=== PATIENT | female | born 1960 | race Caucasian/White ===

== ENCOUNTER 2021-11-05 01:38 | Inpatient (IN) | payer BC, SELFPAY ==
[~2021-11-05] VITALS: Ht 162.6 cm; Wt 72.6 kg
[2021-11-05 01:50] VITALS: BP_SYST 145
--- NOTE | 2021-11-05 01:55 | NUR ---
Patient triaged and placed in waiting room. VSS and patient appears in no acute distress at this time. Accompanied by family, awaiting available bed, and MD notified of need for MSE.
--- NOTE | 2021-11-05 06:46 | NUR ---
Patient ambulatory to bed 1 for evaluation
[2021-11-05] MEDS ORDERED: ONDANSETRON 4 MG ODT TAB PO ONE (07:00)
[2021-11-05] MEDS ORDERED: ACETAMINOPHEN 500 MG TABLET PO ONE (07:00)
--- NOTE | 2021-11-05 07:00 | NUR ---
RESUMED CARE FROM NIGHT RN. PT IS STABLE, NAD, VSS, SOME MILD PAIN PER PT. MEDICATION ORDERED BY ED MD. PLAN OF CARE WITH DISPOSITION TO FOLLOW.
[2021-11-05] MEDS ORDERED: ONDA4TAB5 PO (07:08)
[2021-11-05] MEDS ORDERED: ACET325T53 PO (07:08)
[2021-11-05 08:51] LABS: BASOPHILS % (AUTO) 1.8 % (0.0-2.0); EOSINOPHILS % (AUTO) 0.1 % (0.0-4.0); HEMATOCRIT 39.6 % (36-48); HEMOGLOBIN 14.2 g/dL (12.0-16.0); LYMPHOCYTES # (AUTO) 0.6 K/uL (1.0-5.5); LYMPHOCYTES % (AUTO) 34.9 % (20.5-51.5); MEAN CORPUSCULAR HEMOGLOBIN 29 pg (27-31); MEAN CORPUSCULAR HGB CONC 36 % (32-36); MEAN CORPUSCULAR VOLUME 80 fL (79.0-98.0); MONOCYTES # (AUTO) 0.3 K/uL (0.0-1.0); MONOCYTES % (AUTO) 14.8 % (1.7-9.3); NEUTROPHILS % (AUTO) 48.4 % (40.0-70.0); PLATELET COUNT (AUTO) 280 K/uL (130-430); RED BLOOD CELL COUNT(AUTO) 4.94 MIL/uL (4.2-6.2); RED CELL DISTRIBUTION WIDTH 13.4 % (9.0-15.0)
[2021-11-05 09:01] LABS: NEUTROPHILS # (AUTO) 0.9 K/uL (1.8-7.7); WHITE BLOOD COUNT (AUTO) 1.8 K/uL (4.8-10.8)
[2021-11-05 09:09] LABS: CALCIUM 8.9 mg/dL (8.4-11.0); CREATININE 0.6 mg/dL (0.55-1.30)
[2021-11-05 09:14] LABS: ALBUMIN 4.2 g/dL (3.4-4.8); TOTAL BILIRUBIN 0.5 mg/dL (0.0-1.0)
[2021-11-05 09:22] LABS: POTASSIUM 2.6 mmol/L (3.5-5.1)
[2021-11-05] MEDS ORDERED: NACL 0.9% 1,000 ML IV ONE (09:30)
[2021-11-05 10:22] LABS: CALCIUM 8.8 mg/dL (8.4-11.0); CREATININE 0.57 mg/dL (0.55-1.30)
[2021-11-05 10:47] LABS: POTASSIUM 2.5 mmol/L (3.5-5.1)
[2021-11-05] MEDS ORDERED: POTASSIUM CHLORIDE 20 MEQ TAB.PRT.SR PO ONE (11:00)
[2021-11-05 11:21] LABS: PHOSPHORUS 3.3 mg/dL (2.7-4.5)
[2021-11-05 11:54] LABS: BILIRUBIN,URINE NEGATIVE (NEGATIVE); BLOOD, URINE 1+ (NEGATIVE); CLARITY/URINE CLEAR (CLEAR); COLOR,URINE YELLOW (YELLOW); GLUCOSE,URINE NEGATIVE (NEGATIVE); KETONES,URINE TRACE (NEGATIVE); LEUKOCYTE ESTERASE ,URINE NEGATIVE (NEGATIVE); NITRITE, URINE NEGATIVE (NEGATIVE); PROTEIN URINE 2+ (NEGATIVE); UROBILINOGEN,URINE 0.2 (0.2-1.0)
[2021-11-05 11:57] LABS: BACTERIA,URINE RARE /HPF (None Seen); WBC,URINE 0-3 /HPF (0-3)
[2021-11-05 11:58] LABS: HYALINE CASTS, URINE 0-10 /LPF (None Seen)
[2021-11-05] MEDS ORDERED: LOSA50TA3 PO (13:42)
--- NOTE | 2021-11-05 15:54 | NUR ---
CONSULTS: CONSULTS WERE PAGED DR HA: SPOKE WITH [employer] FAXED OVER FACESHEET [phone] PHONE EXCHANGE KEPT RINGING, WAS NOT ABLE TO MAKE DR MEZA AWARE OF CONSULT
[2021-11-05] MEDS: NACL 0.9% 1,000 ML IV SCH ×2 (16:00→21:40)
--- NOTE | 2021-11-05 19:21 | NUR ---
REPORT RECEIVED FROM [facility]
--- NOTE | 2021-11-05 19:35 | NUR ---
PT SITTING AT BEDSIDE IN A CHAIR, REMAINS ON BEDSIDE MONITOR, C/O HEADACHE AND SORE THROAT 06/08, CALLED BUNNY BLANCHARD AND RECEIVED NEW ORDERS FOR PAIN CONTROL.
[2021-11-05] MEDS: traMADol HCL HCL 50 MG TABLET (ULTRAM) PO PRN (19:54)
--- NOTE | 2021-11-05 22:49 | NUR ---
PT RESTING, REMAINS ON BEDSIDE MONITOR. PAIN IS MUCH BETTER /10. RESPIRATIONS REGULAR EVEN AND UNLABORED.
--- NOTE | 2021-11-06 02:41 | NUR ---
PT SLEEPING, REMAINS ON BEDSIDE MOINTOR, RESPIRATION REGULAR EVEN AND UNLABORED
--- NOTE | 2021-11-06 03:03 | NUR ---
Salty mcfadden in ED - 11/06/21 at 0553 by [id number] PT CONTINUES TO MOVE AROUND IN BED, PULLING OUT HER IV TO R FOREARM. STILL HAS IVTO LAC. MEDICIATEDWITH VERSEDBOLUS, NO EFFECT ON PT. ER AWARE
[2021-11-06] MEDS: NACL 0.9% 1,000 ML IV SCH ×3 (04:20→19:18)
[2021-11-06] MEDS ORDERED: traMADol HCL HCL 50 MG TABLET (ULTRAM) ONE (05:50)
[2021-11-06] MEDS: traMADol HCL HCL 50 MG TABLET (ULTRAM) PO PRN (05:52)
--- NOTE | 2021-11-06 05:53 | NUR ---
PT C/O SEVERE HEADACHE AND BODYACHES, MEDICATED WITH TRAMADOL PER ADMIT ORDERS.
--- NOTE | 2021-11-06 06:51 | NUR ---
PT RESTING, NO DISTRESS NOTED.
--- NOTE | 2021-11-06 07:16 | NUR ---
Salty mcfadden in [facility] - 11/06/21 at 0717 by MIKE report given to naomi orta
[2021-11-06 08:11] LABS: ALBUMIN 3.1 g/dL (3.4-4.8); CALCIUM 7.9 mg/dL (8.4-11.0); CREATININE 0.56 mg/dL (0.55-1.30); POTASSIUM 3.2 mmol/L (3.5-5.1); THYROID STIMULATING HORMONE 1.45 uIu/mL (0.36-3.74); TOTAL BILIRUBIN 0.1 mg/dL (0.0-1.0)
[2021-11-06 08:12] LABS: HEMATOCRIT 35.4 % (36-48); HEMOGLOBIN 12.2 g/dL (12.0-16.0); MEAN CORPUSCULAR HEMOGLOBIN 28 pg (27-31); MEAN CORPUSCULAR HGB CONC 34 % (32-36); MEAN CORPUSCULAR VOLUME 83 fL (79.0-98.0); PLATELET COUNT (AUTO) 230 K/uL (130-430); RED BLOOD CELL COUNT(AUTO) 4.29 MIL/uL (4.2-6.2); RED CELL DISTRIBUTION WIDTH 14.1 % (9.0-15.0)
--- NOTE | 2021-11-06 08:47 | NUR ---
Called Dr. Lyons in regards to pt's new lab values (Soudim 120 and Potassium 3.2). Gave telephone order of 1L nS bolus and 40meQ K-Letitia to be given.
[2021-11-06] MEDS ORDERED: POTASSIUM CHLORIDE 20 MEQ TAB.PRT.SR PO ONE (09:00)
[2021-11-06] MEDS ORDERED: NACL 0.9% 1,000 ML IV ONE (09:00)
--- NOTE | 2021-11-06 09:10 | NUR ---
Pt currently eating breakfast. Called pharmacy to verify pt's potassium medication.
--- NOTE | 2021-11-06 09:27 | NUR ---
Paged Dr. Armstrong in regards of order consult due to pt having Sodium value at 120.
[2021-11-06] MEDS: AZITHROMYCIN 500 MG in NS 250 ML IV SCH (09:53)
--- NOTE | 2021-11-06 11:00 | NUR ---
Dr. Armstrong returned call and stated to continue the 0.9 NS fluid pt is on. No new orders at this time.
[2021-11-06 11:28] LABS: BASOPHILS % (MANUAL) 0 % (0-2); EOSINOPHILS % (MANUAL) 0 % (0-7); LYMPHOCYTES % (MANUAL) 52 % (20-46); MONOCYTES % (MANUAL) 17 % (0-11)
--- NOTE | 2021-11-06 14:09 | NUR ---
Pt resting with no s/s of distress. VSS. Skin intact. 0.9 NS fluids running. IV is intact.
[2021-11-06 16:06] LABS: AMYLASE 91 U/L (0-100); LIPASE 256 U/L (73-393)
--- NOTE | 2021-11-06 16:29 | NUR ---
Pt tried to have a BM but stated she was not able to go. That she has been constipated for 4 days. ER physician notified.
[2021-11-06] MEDS ORDERED: MILK OF MAGNESIA 30 ML UDC PO ONE (17:00)
--- NOTE | 2021-11-06 19:46 | NUR ---
assumed care of pt from naomi orta
[2021-11-06] MEDS ORDERED: LEVOFLOXACIN IN DEXTROSE 5 % 100 ML IV ONE (21:02)
[2021-11-06] MEDS: LEVOFLOXACIN IN DEXTROSE 5 % 100 ML IV SCH (21:05)
--- NOTE | 2021-11-06 22:15 | NUR ---
PT GIVEN A FOOD TRAY. VSS. A&OX4
[2021-11-07] MEDS: NACL 0.9% 1,000 ML IV SCH ×4 (00:45→23:30)
--- NOTE | 2021-11-07 00:45 | NUR ---
# 22 gauge angiocath placed to L FOREARM. Use of asceptic technique. Opsite placed over site. Blood return noted. Flushed with 10 cc of normal saline. No evidence of infiltration noted. Patient tolerated well.
--- NOTE | 2021-11-07 02:52 | NUR ---
PT SLEEPING IN BED. VSS
[2021-11-07 05:48] LABS: HEMATOCRIT 35.5 % (36-48); HEMOGLOBIN 12.2 g/dL (12.0-16.0); LYMPHOCYTES # (AUTO) 0.7 K/uL (1.0-5.5); MONOCYTES # (AUTO) 0.2 K/uL (0.0-1.0)
[2021-11-07 05:52] LABS: ALBUMIN 2.9 g/dL (3.4-4.8); CALCIUM 7.7 mg/dL (8.4-11.0); POTASSIUM 3.6 mmol/L (3.5-5.1); TOTAL BILIRUBIN 0.2 mg/dL (0.0-1.0); URIC ACID 2.7 mg/dL (2.4-7.0)
[2021-11-07 06:14] LABS: CREATININE 0.57 mg/dL (0.55-1.30)
[2021-11-07 07:17] LABS: BASOPHILS % (AUTO) 0.6 % (0.0-2.0); EOSINOPHILS % (AUTO) 0.2 % (0.0-4.0); LYMPHOCYTES % (AUTO) 46.7 % (20.5-51.5); MEAN CORPUSCULAR HEMOGLOBIN 29 pg (27-31); MEAN CORPUSCULAR HGB CONC 34 % (32-36); MEAN CORPUSCULAR VOLUME 84 fL (79.0-98.0); MONOCYTES % (AUTO) 15.3 % (1.7-9.3); NEUTROPHILS % (AUTO) 37.2 % (40.0-70.0); PLATELET COUNT (AUTO) 210 K/uL (130-430); RED BLOOD CELL COUNT(AUTO) 4.24 MIL/uL (4.2-6.2); RED CELL DISTRIBUTION WIDTH 14.1 % (9.0-15.0)
--- NOTE | 2021-11-07 07:18 | NUR ---
REPORT GIVEN TO HONEY RAYA
[2021-11-07 07:24] LABS: NEUTROPHILS # (AUTO) 0.6 K/uL (1.8-7.7)
[2021-11-07 07:26] LABS: WHITE BLOOD COUNT (AUTO) 1.5 K/uL (4.8-10.8)
--- NOTE | 2021-11-07 07:45 | NUR ---
Recieved report from Michael RAYA.
--- NOTE | 2021-11-07 09:00 | NUR ---
Urine collected and sent to lab.
[2021-11-07] MEDS: AZITHROMYCIN 500 MG in NS 250 ML IV SCH (09:34)
[2021-11-07 10:30] VITALS: BP_SYST 149
--- NOTE | 2021-11-07 19:05 | NUR ---
Awaiting rm availability for Tele admit.NAD. NS 0.9 %IVF infusing well.
--- NOTE | 2021-11-07 19:05 | NUR ---
Report recieved fro am shift DOROTA Scales and care assumed.
[2021-11-07] MEDS: LEVOFLOXACIN IN DEXTROSE 5 % 100 ML IV SCH (22:25)
--- NOTE | 2021-11-07 22:35 | NUR ---
REport given to Tereza Boyer via phone.Wheeled by RN and EMT to [id number] with belongings.
[2021-11-07 22:45] VITALS: BP_SYST 145
[2021-11-07] MEDS ORDERED: DIPHENHYDRAMINE INJ 50 MG/ML VIAL IVP ONE (23:30)
[2021-11-07] MEDS ORDERED: DIPHENHYDRAMINE INJ 50 MG/ML VIAL ONE (23:33)
[2021-11-08] MEDS: NACL 0.9% 1,000 ML IV SCH ×3 (03:00→16:20)
[2021-11-08 07:39] LABS: BASOPHILS % (AUTO) 0.7 % (0.0-2.0); EOSINOPHILS % (AUTO) 0.7 % (0.0-4.0); HEMATOCRIT 37.4 % (36-48); HEMOGLOBIN 13.1 g/dL (12.0-16.0); LYMPHOCYTES % (AUTO) 62.3 % (20.5-51.5); MEAN CORPUSCULAR HEMOGLOBIN 29 pg (27-31); MEAN CORPUSCULAR HGB CONC 35 % (32-36); MEAN CORPUSCULAR VOLUME 82 fL (79.0-98.0); MONOCYTES # (AUTO) 0.2 K/uL (0.0-1.0); MONOCYTES % (AUTO) 13.2 % (1.7-9.3); NEUTROPHILS % (AUTO) 23.1 % (40.0-70.0); PLATELET COUNT (AUTO) 223 K/uL (130-430); RED BLOOD CELL COUNT(AUTO) 4.54 MIL/uL (4.2-6.2); RED CELL DISTRIBUTION WIDTH 14.1 % (9.0-15.0)
--- NOTE | 2021-11-08 08:15 | NUR ---
OPENING NOTE Received shift report from full stack software developer RN. Patient AxOx4 is currently resting in bed and respirations remain even and non-labored on room air. IV is patent and infusing fluids as ordered. Bed locked in lowest position and call light is within reach. COVID isolation precautions remain in place. Will continue to monitor.
[2021-11-08 08:16] LABS: CALCIUM 7.8 mg/dL (8.4-11.0); CREATININE 0.53 mg/dL (0.55-1.30); POTASSIUM 3.2 mmol/L (3.5-5.1); TOTAL BILIRUBIN 0.3 mg/dL (0.0-1.0)
[2021-11-08 08:42] LABS: WHITE BLOOD COUNT (AUTO) 1.6 K/uL (4.8-10.8)
[2021-11-08 08:43] LABS: NEUTROPHILS # (AUTO) 0.4 K/uL (1.8-7.7)
[2021-11-08 08:59] VITALS: BP_SYST 151
--- NOTE | 2021-11-08 09:20 | NUR ---
CRITICAL LAB Received critical lab (WBC=1.6, Neutrophils 0.4). Alexia [place]. Will wait for orders.
[2021-11-08] MEDS: AZITHROMYCIN 500 MG in NS 250 ML IV SCH (11:22)
[2021-11-08 12:59] VITALS: BP_SYST 153
--- NOTE | 2021-11-08 14:00 | NUR ---
Attempted IV IV access in left forearm infiltrated. New IV access attempted by student nurse. Patient states that she wants "someone more experienced to put her IV in". Noted and will carry out.
[2021-11-08 16:09] VITALS: BP_SYST 141
[2021-11-08] MEDS ORDERED: FILGRASTIM Non-Formulary 0.48 MG/VIAL SUBCUT ONE (16:15)
[2021-11-08] MEDS ORDERED: TBO-FILGRASTIM 480 MCG/0.8 ML SYRINGE SUBCUT ONE (16:30)
--- NOTE | 2021-11-08 18:49 | NUR ---
CLOSING NOTE Patient currently eating dinner in bed and respirations remain even and non-labored on room air. Bed locked in lowest position and call light is within reach. All needs met throughout shift. Vital signs remained stable throughout shift. Will endorse to police shift commander RN.
[2021-11-08 20:11] VITALS: BP_SYST 150
[2021-11-08] MEDS ORDERED: amLODIPine BESYLATE 10 MG TABLET PO ONE (20:30)
[2021-11-08] MEDS: LEVOFLOXACIN IN DEXTROSE 5 % 100 ML IV SCH (20:35)
[2021-11-09 00:33] VITALS: BP_SYST 151
--- NOTE | 2021-11-09 00:38 | NUR ---
TEMPERATURE 100.2 FAHRENHEIT POSSIBLY DUE TO THE REFUSAL OF LEVAQUIN D/T ITCHING OF INTRAVENOUS FLUID VIA PIGGYBACK ON HER RIGHT ARM ON 11-07-21.
[2021-11-09] MEDS: NACL 0.9% 1,000 ML IV SCH ×2 (01:23→15:05)
[2021-11-09] MEDS: ACETAMINOPHEN 325 MG TABLET PO PRN ×2 (02:11→10:59)
--- NOTE | 2021-11-09 07:05 | NUR ---
HANDOFF WITH DOROTA PIMENTEL. ROSARIO EDWARD RN
--- NOTE | 2021-11-09 07:30 | NUR ---
CONSULTATION PAGED/CALLED Reason for Consultation: [] decreased wbc, neutrophils Person Who was Notified: [] SWETHA Consulting Physician: [] DR VARGAS Molder Fitting Specialty: [] ONCO/PELON Ordering Physician: [] DR BLANCHARD
[2021-11-09 07:50] VITALS: BP_SYST 127
[2021-11-09 08:06] LABS: HEPATITIS A AB, IgM Negative (Negative); HEPATITIS B CORE AB, IgM Negative (Negative); HEPATITIS B SURFACE AG Negative (Negative)
[2021-11-09 08:08] LABS: ALBUMIN 3.2 g/dL (3.4-4.8); CALCIUM 8.5 mg/dL (8.4-11.0); CREATININE 0.69 mg/dL (0.55-1.30); POTASSIUM 3.1 mmol/L (3.5-5.1); TOTAL BILIRUBIN 0.4 mg/dL (0.0-1.0)
[2021-11-09 08:47] LABS: TOTAL IRON BIND. CAPACITY 331 ug/dL (250-450)
[2021-11-09] MEDS ORDERED: AZITHROMYCIN 500 MG in NS 250 ML IV SCH (09:00)
[2021-11-09] MEDS: amLODIPine BESYLATE 10 MG TABLET PO SCH (09:00)
--- NOTE | 2021-11-09 10:32 | NUR ---
Dietitian Recommendations *Continue 2gm Na diet. *Recommend: add appetite stimulant. *Recommend: adding ONS Ensure Enlive TID and stool softener for regular BMs. Please see Nutritional Assessment for details MARY MENG
[2021-11-09 10:53] VITALS: BP_SYST 117
[2021-11-09 11:14] LABS: HEMATOCRIT 40.2 % (36-48); HEMOGLOBIN 13.4 g/dL (12.0-16.0); MEAN CORPUSCULAR HEMOGLOBIN 28 pg (27-31); MEAN CORPUSCULAR HGB CONC 33 % (32-36); MEAN CORPUSCULAR VOLUME 83 fL (79.0-98.0); PLATELET COUNT (AUTO) 351 K/uL (130-430); RED BLOOD CELL COUNT(AUTO) 4.83 MIL/uL (4.2-6.2); RED CELL DISTRIBUTION WIDTH 14.1 % (9.0-15.0)
[2021-11-09] MEDS ORDERED: POTASSIUM CHLORIDE 20 MEQ TAB.PRT.SR PO ONE ×2 (13:15→20:15)
--- NOTE | 2021-11-09 13:15 | NUR ---
called dr hickey called dr hickey and informed that pt is refusing iv antibiotics. pt stated that she had reaction with iv antibiotic levaquin and Zithromax.after Zithromax she developed pain in left hand and high bp.dr hickey notified. new order received from dr hickey to discontinue antibiotic. potassium level 3.[address] hickey .new order received carried out. .
--- NOTE | 2021-11-09 13:54 | NUR ---
INFORMED DOROTA PIMENTEL THAT THE PATIENT IS OFF THE LEADS
[2021-11-09 14:58] LABS: BAND % (MANUAL) 26 % (0-6)
[2021-11-09 14:59] LABS: ATYPICAL LYMPHOCYTES % 1 % (0-0); BASOPHILS % (MANUAL) 0 % (0-2); EOSINOPHILS % (MANUAL) 0 % (0-7); LYMPHOCYTES % (MANUAL) 3 % (20-46); METAMYELOCYTES % 2 % (0-0); MONOCYTES % (MANUAL) 4 % (0-11)
[2021-11-09 16:00] VITALS: BP_SYST 145
--- NOTE | 2021-11-09 19:23 | NUR ---
Patient family request to change location due to neighboring bed disruption of patient care with loud voice. Day shift charge nurse made aware of family request. Clifford Valenzuela RN
--- NOTE | 2021-11-09 19:30 | NUR ---
closing notes pt remain stable throughout shift. notin acute distress. res even and unlabored. needs attended. notin acute distress. kept comfortable. report given to night nurse
[2021-11-09 20:05] VITALS: BP_SYST 143
--- NOTE | 2021-11-09 23:27 | NUR ---
Patient asking about discharge plan for home in the morning. Material Specialist discussion about treatment with primary MD if a urinary tract infection was present. According to documentation this is a contaminant per Doctor Jaleel. Clifford Valenzuela RN
[2021-11-10 00:20] VITALS: BP_SYST 144
[2021-11-10] MEDS: NACL 0.9% 1,000 ML IV SCH (04:25)
--- NOTE | 2021-11-10 07:26 | NUR ---
HANDOFF WITH DOROTA CURRY. ROSARIO EDWARD RN
[2021-11-10 07:59] VITALS: BP_SYST 148
--- NOTE | 2021-11-10 08:00 | NUR ---
MORNING ROUNDS: PATIENT AWAKE,ALERT AND ORIENTED X4. COVID 19 ISOLATION PRECAUTION RENDERED. IV SALINE LOCK. CALL LIGHT WITH IN REACH. BED LOCKED AT LOWEST POSITION.NO ACUTE DISTRESS.
[2021-11-10] MEDS: amLODIPine BESYLATE 10 MG TABLET PO SCH (09:33)
[2021-11-10 10:29] LABS: BASOPHILS % (AUTO) 0.3 % (0.0-2.0); EOSINOPHILS % (AUTO) 0.2 % (0.0-4.0); HEMATOCRIT 37.2 % (36-48); HEMOGLOBIN 12.6 g/dL (12.0-16.0); LYMPHOCYTES # (AUTO) 1.1 K/uL (1.0-5.5); LYMPHOCYTES % (AUTO) 7.3 % (20.5-51.5); MEAN CORPUSCULAR HEMOGLOBIN 28 pg (27-31); MEAN CORPUSCULAR HGB CONC 34 % (32-36); MEAN CORPUSCULAR VOLUME 83 fL (79.0-98.0); MONOCYTES # (AUTO) 0.6 K/uL (0.0-1.0); MONOCYTES % (AUTO) 4.3 % (1.7-9.3); NEUTROPHILS # (AUTO) 13.2 K/uL (1.8-7.7); NEUTROPHILS % (AUTO) 87.9 % (40.0-70.0); PLATELET COUNT (AUTO) 368 K/uL (130-430); RED BLOOD CELL COUNT(AUTO) 4.47 MIL/uL (4.2-6.2); RED CELL DISTRIBUTION WIDTH 14.3 % (9.0-15.0)
[2021-11-10 10:55] LABS: ALBUMIN 3.2 g/dL (3.4-4.8); CALCIUM 8.8 mg/dL (8.4-11.0); CREATININE 0.6 mg/dL (0.55-1.30); POTASSIUM 3.3 mmol/L (3.5-5.1); TOTAL BILIRUBIN 0.1 mg/dL (0.0-1.0)
[2021-11-10 11:06] LABS: FOLATE (FOLIC ACID) 12.3 ng/mL (>3.0)
[2021-11-10 12:44] VITALS: BP_SYST 142
[2021-11-10] MEDS ORDERED: POTASSIUM CHLORIDE 20 MEQ TAB.PRT.SR PO ONE (15:45)
--- NOTE | 2021-11-10 16:24 | NUR ---
HELP DESK AGENT ROUNDS: DC HOME IF CLEAR WITH CONSULT.
[2021-11-10 17:42] VITALS: BP_SYST 136
--- NOTE | 2021-11-10 17:47 | NUR ---
Pt refused tele back on: Patient refused heart monitor back since she said she is being discharge home.
--- NOTE | 2021-11-10 18:25 | NUR ---
NEPHRO PAGED : CALLED DR BINGHAM FOR CLEARANCE X2.WAITING TO CALL BACK THE UNIT.LEFT MESSAGE C/O EXCHANGE EINA.
[2021-11-10 18:26] VITALS: BP_SYST 136
--- NOTE | 2021-11-10 18:39 | NUR ---
NEPHRO ROUNDS: DR BINGHAM CAME AND CLEARED PATIENT HOME.TO EAT PLENTY OF BANANAS.
== END 2021-11-10 19:10 | disposition home or self-care (01) | DRG 178 ==
LOC: SED 01:38 → STU 14:49 → SMU 11-07 20:02 → STU 11-07 21:13
PROVIDERS: ADMIT Internal Medicine; ATTEND Internal Medicine
DX: U07.1 COVID-19 (principal); E87.1 Hypo-osmolality and hyponatremia; N39.0 Urinary tract infection, site not specified; I10 Essential (primary) hypertension; E87.6 Hypokalemia; E78.5 Hyperlipidemia, unspecified; E86.1 Hypovolemia; K42.9 Umbilical hernia without obstruction or gangrene; K56.41 Fecal impaction; N32.89 Other specified disorders of bladder; D70.9 Neutropenia, unspecified; B96.20 Unspecified Escherichia coli [E. coli] as the cause of diseases classified elsewhere; Z79.1 Long term (current) use of non-steroidal anti-inflammatories (NSAID); Z79.899 Other long term (current) drug therapy
CPT/HCPCS: 36415; 71045; 76376; 80048; 80053; 80061; 80074; 81000; 82150; 82533; 82607; 82728; 82746; 83540; 83550; 83690; 83735; 83930; 83935; 84100; 84302; 84443; 84550; 85007; 85025; 85027; 87086; 87186-TC; 93005; 99285; G0378; J0456; J1200; J1447; J1956; J7050; Q0162